=== PATIENT | female | born 1970 | race Caucasian/White ===

== ENCOUNTER 2016-07-21 21:26 | Emergency (ER) | payer OTHER ==
[2016-07-21] MEDS ORDERED: ONDANSETRON 4 MG ODT TAB ONE (22:55)
[2016-07-21] MEDS ORDERED: MAALOX/LIDO2%VISC/SIMETHICONE 40 ML BOT ONE (22:55)
== END 2016-07-21 23:43 | disposition home or self-care (01) ==
LOC: ED 21:26
DX: K29.70 Gastritis, unspecified, without bleeding (principal); E07.9 Disorder of thyroid, unspecified; F17.210 Nicotine dependence, cigarettes, uncomplicated
CPT/HCPCS: 99283 ×2; A9270 ×2